=== PATIENT | female | born 1960 | race Caucasian/White ===

== ENCOUNTER → 2017-09-18 | Outpatient (CLI) | payer MEDICAID ==
--- NOTE | 2017-09-18 15:00 | PCVCIMAG ---
EXAM: BILATERAL LOWER EXTREMITY ARTERIAL DUPLEX INDICATION: Peripheral Arterial Disease. Leg pain. Previous right toe amputation. Left toe ulcers. FINDINGS: Right Leg: Satisfactory arterial waveforms in the common femoral and profunda femoral artery. 95% stenosis distal [place] superficial femoral artery. Popliteal artery is patent. The anterior tibial, peroneal, and posterior tibial arteries are patent. Left Leg: Satisfactory arterial waveform in the common femoral and profunda femoral arteries. Segmental occlusion mid/distal [place] superficial femoral artery. Popliteal artery is patent. Occlusion of the mid and distal posterior tibial artery. The anterior tibial and peroneal arteries are patent. IMPRESSION: 95% stenosis distal [place] right superficial femoral artery. Segmental occlusion mid/distal [place] left superficial femoral artery. Occlusion of the mid/distal left posterior tibial artery. LOC:[id number]
== END | disposition home or self-care (01) ==
LOC: PCVCIMAG 13:23
PROVIDERS: ATTEND Nuclear Medicine Nuclear Cardiology
DX: I73.9 Peripheral vascular disease, unspecified (principal); M79.605 Pain in left leg; M79.604 Pain in right leg; L97.529 Non-pressure chronic ulcer of other part of left foot with unspecified severity; I70.8 Atherosclerosis of other arteries
CPT/HCPCS: 36415; 93925

== ENCOUNTER → 2017-09-25 | Outpatient (CLI) | payer MEDICAID ==
[~2017-09-25] MED LIST: DIAZEPAM 10 MG TABLET. ONE; EPTIFIBATIDE BOLUS 2,000 MCG/ML 10ML VIAL. IV ONE; HEPARIN SODIUM 5,000 UNIT/ML VIAL for PCVC. ONE; IODIXANOL 270 MG/ML 100 ML VIAL. ONE; IV NORMAL SALINE 1000ML BAG 1,000 ML ONE; IV NORMAL SALINE 500ML BAG 500 ML ONE; LIDOCAINE 1% Multi-Dose 20 ML VIAL. ONE; LIDOCAINE 1%/EPI 1:100,000 20 ML VIAL. ONE; MIDAZOLAM HCL/PF 2 MG/2 ML VIAL. ONE; fentaNYL PF VIAL 100 MCG/2 ML VIAL ONE; hydrALAZINE 20 MG/ML VIAL. ONE
--- NOTE | 2017-09-25 13:49 | PCVCINTER ---
EXAM: 1. RIGHT SUPERFICIAL FEMORAL ARTERY ATHERECTOMY. 2. SECONDARY THROMBECTOMY RIGHT SUPERFICIAL FEMORAL ARTERY. 3. DRUG COATED BALLOON ANGIOPLASTY RIGHT SUPERFICIAL FEMORAL ARTERY. INDICATION: Peripheral arterial disease. Right leg pain. Hypertension. Renal atherosclerosis. PROCEDURE: Procedure and risks of angiography intervention is appropriate including limb loss stroke and were discussed with the patient's family and consent obtained. The patient's left groin was prepped abnormal sterile fashion. IV conscious sedation was used to procedure with appropriate monitoring from 11:00 AM through 12:00 PM. Ultrasound was used to interrogate the left groin and showed the left common femoral artery to be patent. A permanent spot film was obtained. Under ultrasound guidance access into the left common femoral artery was obtained and a 6 Martiniquais crossover sheath was placed via the left groin to the level of the right common femoral artery. Patient was given 4500 units of heparin IV. Atherectomy of the right superficial femoral artery was performed with 2.0 mm CO3 [employer] laser atherectomy catheter in the standard fashion. Following atherectomy small areas of thrombus were observed and because of this secondary thrombectomy throughout the right superficial femoral artery was carried out with mechanical suction thrombectomy catheter in the standard fashion. Minimal debris was removed. Following this drug coated balloon angioplasty of the right superficial femoral artery was carried out with a 5 x 120 [employer] Frances Ricardo SUPPLY OFFICER catheter. Follow-up angiogram was performed. Catheters and wires removed. Sheath was removed and hemostasis obtained using the FISH device. No immediate complications. FINDINGS: Right superficial femoral artery: Following the procedure as above vessel is widely patent. IMPRESSION: 80% stenosis mid to distal right superficial femoral artery was treated as above with good patency restored. impression follow up LOC:[place] [id number]
== END | disposition home or self-care (01) ==
LOC: PCVCINTER 09:30
PROVIDERS: ATTEND Nuclear Medicine Nuclear Cardiology
DX: I70.211 Atherosclerosis of native arteries of extremities with intermittent claudication, right leg (principal); I10 Essential (primary) hypertension; I70.1 Atherosclerosis of renal artery; E11.51 Type 2 diabetes mellitus with diabetic peripheral angiopathy without gangrene; I25.2 Old myocardial infarction; J45.909 Unspecified asthma, uncomplicated; Z98.890 Other specified postprocedural states
CPT/HCPCS: 37186; 37225; 76937; 99152; 99153; C1725; C1751; C1757; C1760; C1769; C1894; J0690; J1644; J2250; J3010; J3490; J7030; J7040; J0360; J1327

== ENCOUNTER → 2018-03-31 | Outpatient (CLI) | payer MEDICAID | END | disposition home or self-care (01) | LOC: PCVCCLINIC 11:36 | DX: Z51.81 Encounter for therapeutic drug level monitoring (principal); E11.622 Type 2 diabetes mellitus with other skin ulcer; L98.499 Non-pressure chronic ulcer of skin of other sites with unspecified severity; J45.909 Unspecified asthma, uncomplicated; I10 Essential (primary) hypertension; E78.00 Pure hypercholesterolemia, unspecified; Z72.0 Tobacco use; Z79.01 Long term (current) use of anticoagulants | CPT/HCPCS: 85610 ==

== ENCOUNTER → 2018-04-08 | Outpatient (CLI) | payer MEDICAID | END | disposition home or self-care (01) | LOC: PCVCCLINIC 11:00 | DX: Z51.81 Encounter for therapeutic drug level monitoring (principal); J45.909 Unspecified asthma, uncomplicated; E11.9 Type 2 diabetes mellitus without complications; I73.9 Peripheral vascular disease, unspecified; E78.00 Pure hypercholesterolemia, unspecified; Z72.0 Tobacco use; Z88.8 Allergy status to other drugs, medicaments and biological substances; Z79.01 Long term (current) use of anticoagulants | CPT/HCPCS: 85610 ==

== ENCOUNTER → 2018-04-15 | Outpatient (CLI) | payer MEDICAID | END | disposition home or self-care (01) | LOC: PCVCCLINIC 08:40 | DX: Z51.81 Encounter for therapeutic drug level monitoring (principal); J45.909 Unspecified asthma, uncomplicated; E11.9 Type 2 diabetes mellitus without complications; L98.499 Non-pressure chronic ulcer of skin of other sites with unspecified severity; E78.00 Pure hypercholesterolemia, unspecified; I10 Essential (primary) hypertension; Z72.0 Tobacco use; Z79.899 Other long term (current) drug therapy; Z79.01 Long term (current) use of anticoagulants | CPT/HCPCS: 85610 ==

== ENCOUNTER → 2018-04-22 | Outpatient (CLI) | payer MEDICAID | END | disposition home or self-care (01) | LOC: PCVCCLINIC 11:23 | DX: Z51.81 Encounter for therapeutic drug level monitoring (principal); J45.909 Unspecified asthma, uncomplicated; E11.9 Type 2 diabetes mellitus without complications; L98.499 Non-pressure chronic ulcer of skin of other sites with unspecified severity; I73.9 Peripheral vascular disease, unspecified; I10 Essential (primary) hypertension; E78.00 Pure hypercholesterolemia, unspecified; Z72.0 Tobacco use; Z79.01 Long term (current) use of anticoagulants | CPT/HCPCS: 85610 ==

== ENCOUNTER → 2018-05-05 | Outpatient (CLI) | payer MEDICAID | END | disposition home or self-care (01) | LOC: PCVCIMAG 13:53 | DX: I73.9 Peripheral vascular disease, unspecified (principal); J45.909 Unspecified asthma, uncomplicated; E11.9 Type 2 diabetes mellitus without complications; L98.499 Non-pressure chronic ulcer of skin of other sites with unspecified severity; I10 Essential (primary) hypertension; E78.00 Pure hypercholesterolemia, unspecified; Z79.01 Long term (current) use of anticoagulants; Z72.0 Tobacco use | CPT/HCPCS: 85610; 93925; 93926 ==

== ENCOUNTER → 2018-05-30 | Outpatient (CLI) | payer MEDICAID | END | disposition home or self-care (01) | LOC: PCVCCLINIC 11:08 | DX: Z51.81 Encounter for therapeutic drug level monitoring (principal); J45.909 Unspecified asthma, uncomplicated; E11.9 Type 2 diabetes mellitus without complications; I73.9 Peripheral vascular disease, unspecified; Z79.01 Long term (current) use of anticoagulants | CPT/HCPCS: 85610 ==

== ENCOUNTER → 2018-06-09 | Outpatient (CLI) | payer MEDICAID | END | disposition home or self-care (01) | LOC: PCVCIMAG 15:37 | DX: I73.9 Peripheral vascular disease, unspecified (principal); I70.8 Atherosclerosis of other arteries | CPT/HCPCS: 93926 ==

== ENCOUNTER → 2018-07-01 | Outpatient (CLI) | payer MEDICAID | END | disposition home or self-care (01) | LOC: PCVCCLINIC 09:54 | PROVIDERS: ATTEND Nuclear Medicine Nuclear Cardiology | DX: Z51.81 Encounter for therapeutic drug level monitoring (principal); I10 Essential (primary) hypertension; E11.9 Type 2 diabetes mellitus without complications; E78.00 Pure hypercholesterolemia, unspecified; I73.9 Peripheral vascular disease, unspecified; J45.909 Unspecified asthma, uncomplicated; Z72.0 Tobacco use; Z88.8 Allergy status to other drugs, medicaments and biological substances; Z79.01 Long term (current) use of anticoagulants | CPT/HCPCS: 85610 ==

== ENCOUNTER → 2018-07-08 | Outpatient (CLI) | payer MEDICAID | END | disposition home or self-care (01) | LOC: PCVCCLINIC 11:38 | PROVIDERS: ATTEND Nuclear Medicine Nuclear Cardiology | DX: Z51.81 Encounter for therapeutic drug level monitoring (principal); E11.51 Type 2 diabetes mellitus with diabetic peripheral angiopathy without gangrene; J45.909 Unspecified asthma, uncomplicated; I10 Essential (primary) hypertension; Z79.01 Long term (current) use of anticoagulants; Z72.0 Tobacco use; Z88.8 Allergy status to other drugs, medicaments and biological substances | CPT/HCPCS: 85610 ==

== ENCOUNTER → 2018-07-15 | Outpatient (CLI) | payer MEDICAID | END | disposition home or self-care (01) | LOC: PCVCCLINIC 11:53 | PROVIDERS: ATTEND Surgery Vascular Surgery | DX: Z51.81 Encounter for therapeutic drug level monitoring (principal); E11.9 Type 2 diabetes mellitus without complications; J45.909 Unspecified asthma, uncomplicated; Z79.01 Long term (current) use of anticoagulants; Z72.0 Tobacco use | CPT/HCPCS: 85610 ==

== ENCOUNTER → 2018-07-29 | Outpatient (CLI) | payer MEDICAID | END | disposition home or self-care (01) | LOC: PCVCCLINIC 10:44 | PROVIDERS: ATTEND Nuclear Medicine Nuclear Cardiology | DX: Z51.81 Encounter for therapeutic drug level monitoring (principal); E11.9 Type 2 diabetes mellitus without complications; I73.9 Peripheral vascular disease, unspecified; I10 Essential (primary) hypertension; E78.00 Pure hypercholesterolemia, unspecified; Z88.8 Allergy status to other drugs, medicaments and biological substances; Z79.01 Long term (current) use of anticoagulants | CPT/HCPCS: 85610 ==

== ENCOUNTER → 2018-08-13 | Outpatient (CLI) | payer MEDICAID | END | disposition home or self-care (01) | LOC: PCVCCLINIC 10:54 | PROVIDERS: ATTEND Nuclear Medicine Nuclear Cardiology | DX: Z51.81 Encounter for therapeutic drug level monitoring (principal); E11.9 Type 2 diabetes mellitus without complications; J45.909 Unspecified asthma, uncomplicated; I10 Essential (primary) hypertension; Z72.0 Tobacco use; Z79.01 Long term (current) use of anticoagulants | CPT/HCPCS: 85610 ==

== ENCOUNTER → 2018-08-26 | Outpatient (CLI) | payer MEDICAID | END | disposition home or self-care (01) | LOC: PCVCCLINIC 09:37 | PROVIDERS: ATTEND Nuclear Medicine Nuclear Cardiology | DX: Z51.81 Encounter for therapeutic drug level monitoring (principal); E11.9 Type 2 diabetes mellitus without complications; Z72.0 Tobacco use; Z79.01 Long term (current) use of anticoagulants | CPT/HCPCS: 85610 ==

== ENCOUNTER → 2018-09-03 | Outpatient (CLI) | payer MEDICAID | END | disposition home or self-care (01) | LOC: PCVCCLINIC 15:47 | PROVIDERS: ATTEND Nuclear Medicine Nuclear Cardiology | DX: Z51.81 Encounter for therapeutic drug level monitoring (principal); E11.9 Type 2 diabetes mellitus without complications; I10 Essential (primary) hypertension; Z79.01 Long term (current) use of anticoagulants | CPT/HCPCS: 85610 ==

== ENCOUNTER → 2018-09-22 | Outpatient (CLI) | payer MEDICAID | END | disposition home or self-care (01) | LOC: PCVCCLINIC 11:53 | PROVIDERS: ATTEND Nuclear Medicine Nuclear Cardiology | DX: Z51.81 Encounter for therapeutic drug level monitoring (principal); J45.909 Unspecified asthma, uncomplicated; E11.9 Type 2 diabetes mellitus without complications; I10 Essential (primary) hypertension; E78.00 Pure hypercholesterolemia, unspecified; Z79.01 Long term (current) use of anticoagulants | CPT/HCPCS: 85610 ==

== ENCOUNTER → 2018-10-07 | Outpatient (CLI) | payer MEDICAID | END | disposition home or self-care (01) | LOC: PCVCCLINIC 10:15 | PROVIDERS: ATTEND Nuclear Medicine Nuclear Cardiology | DX: Z51.81 Encounter for therapeutic drug level monitoring (principal); E11.9 Type 2 diabetes mellitus without complications; J45.909 Unspecified asthma, uncomplicated; I10 Essential (primary) hypertension; E78.00 Pure hypercholesterolemia, unspecified; Z79.01 Long term (current) use of anticoagulants | CPT/HCPCS: 36415; 85610 ==

== ENCOUNTER → 2018-10-21 | Outpatient (CLI) | payer MEDICAID ==
--- NOTE | 2018-10-21 11:17 | PCVCIMAG ---
EXAM: BILATERAL LOWER EXTREMITY ARTERIAL DUPLEX INDICATION: Peripheral Arterial Disease. Leg pain. FINDINGS: Right Leg: Common femoral and profunda femoral arteries are patent. Increased systolic velocity 442 cm/s mid superficial femoral artery in the midportion of a prior stent consistent with 90% restenosis. Popliteal artery is patent. The anterior tibial and posterior tibial arteries are patent. Distal peroneal artery not well seen. Left Leg: Common femoral and profunda femoral arteries are patent. Complete occlusion of the superficial femoral artery. Postsurgical changes of [id number] popliteal artery bypass graft remain patent. Good flow throughout the bypass graft. Popliteal artery is patent. Mid and distal posterior tibial artery is occluded. Peroneal artery and anterior tibial artery are patent. IMPRESSION: Interval development of 90% restenosis mid right superficial femoral artery within prior stent. Left [id number] popliteal artery bypass graft is patent. Unchanged occlusion mid/distal left posterior tibial artery. LOC:[place] [id number]
== END | disposition home or self-care (01) ==
LOC: PCVCIMAG 09:25
PROVIDERS: ATTEND Nuclear Medicine Nuclear Cardiology
DX: I73.9 Peripheral vascular disease, unspecified (principal); Z72.0 Tobacco use
CPT/HCPCS: 93925

== ENCOUNTER → 2018-10-23 | Outpatient (CLI) | payer MEDICAID ==
[~2018-10-23] MED LIST changes: -HEPARIN SODIUM 5,000 UNIT/ML VIAL for PCVC. ONE; +HEPARIN for SUB-Q USE 5,000 UNIT/ML VIAL. SQ ONE; -IV NORMAL SALINE 500ML BAG 500 ML ONE; -LIDOCAINE 1% Multi-Dose 20 ML VIAL. ONE
--- NOTE | 2018-10-23 16:16 | PCVCINTER ---
EXAM: 1. AORTOGRAM AND BILATERAL LOWER EXTREMITY RUNOFF ANGIOGRAM 2. BILATERAL RENAL ANGIOGRAPHY 3. RIGHT SUPERFICIAL FEMORAL ARTERY ATHERECTOMY AND STENT GRAFT PLACEMENT. 4. SECONDARY THROMBECTOMY RIGHT SUPERFICIAL FEMORAL ARTERY. 5. DRUG COATED BALLOON ANGIOPLASTY RIGHT SUPERFICIAL FEMORAL ARTERY. INDICATION: Peripheral arterial disease. Coronary artery disease. Right leg claudication. In-stent restenosis. Hypertension. Renal atherosclerosis. No prior catheter based angiographic study is available. A full diagnostic angiogram study is performed today and the decision to intervene is based on this diagnostic study. PROCEDURE: Procedure and risks of angiography intervention is appropriate including limb loss stroke and were discussed with the patient's family and consent obtained. The patient's left groin was prepped in the normal sterile fashion. IV conscious sedation was used throughout procedure with appropriate monitoring from 90. Ultrasound was used to interrogate the left groin and showed the left common femoral artery to be patent. A permanent spot film was obtained. Under ultrasound guidance access into the left common femoral artery was obtained and a 5 Jordanian sheath was placed. Through this a 5 Jordanian flush catheter was placed into the abdominal aorta at the level of the renal arteries and AP aortogram was performed. Catheter was positioned at the aortic bifurcation and both oblique views of the pelvis were obtained. Catheter was positioned into the left external iliac artery and left leg runoff angiography was performed. Catheter was exchanged for a visceral catheter was placed into the right renal arteries and right renal angiograms obtained. Catheter was placed into the the left renal arteries and left renal angiograms were obtained. Catheter was advanced to the level of the right external iliac artery and right leg runoff angiography was obtained. Patient was given 4500 units of heparin. A 6 Jordanian crossover sheath was placed via the left groin to the level of the right common femoral artery. Atherectomy of the right superficial femoral artery was performed with 2.0 mm [employer] laser atherectomy catheter in the standard fashion. Following atherectomy small areas of thrombus were observed and because of this secondary thrombectomy throughout the right superficial femoral artery was carried out with mechanical suction thrombectomy catheter in the standard fashion. Minimal debris was removed. Following this drug coated balloon angioplasty of the right superficial femoral artery was carried out with 6 x 120 and 6 x 40 [employer] Frances Ricardo COMMUNITY DEVELOPMENT PLANNER catheters. Stent placement across the areas of high-grade stenosis in the right superficial femoral artery was carried out with a 6 x 150 Viabahn stent graft with subsequent dilatation to 6.0 mm. Follow-up angiogram was performed. Catheters and wires removed. Sheath was removed and hemostasis obtained using the FISH device. No immediate complications. FINDINGS: Aortogram: There is one right and 2 left renal arteries. Moderate plaque in the abdominal aorta without significant stenosis. Pelvis: Moderate plaque right and left common iliac arteries without flow-limiting stenosis. Both internal iliac arteries are patent. Both external iliac arteries are patent. The right and left common femoral and profunda femoral arteries are patent. Right renal artery: Mild plaque proximal vessel does not cause significant stenosis. Left renal artery: There are 2 left renal arteries with the inferior artery being the more dominant artery. Both arteries show adequate patency. Right leg: Areas of high-grade restenosis proximal/mid superficial femoral artery within prior stent. Distal portion of the superficial femoral artery including areas previously stented maintaining adequate patency. The popliteal artery is patent. Three-vessel runoff into the foot. Left leg: Complete occlusion throughout the superficial femoral artery. Postsurgical changes of femoral to above-knee popliteal artery vein bypass graft is widely patent. Popliteal artery shows good patency throughout. The posterior tibial artery is occluded throughout. Peroneal artery is made of an size especially in its distal portion. The anterior tibial artery is the dominant runoff vessel is widely patent to runoff into a moderate-sized dorsalis pedis which refills the metatarsal arch. Right superficial femoral artery: Following procedure as above vessel shows good patency throughout. IMPRESSION: Areas of high-grade in-stent restenosis proximal/mid right superficial femoral artery were treated as above with good patency restored. Previous left femoral-popliteal artery vein bypass graft maintaining good patency. LOC:[id number]
== END | disposition home or self-care (01) ==
LOC: PCVCINTER 09:37
PROVIDERS: ATTEND Nuclear Medicine Nuclear Cardiology
DX: I70.213 Atherosclerosis of native arteries of extremities with intermittent claudication, bilateral legs (principal); I70.1 Atherosclerosis of renal artery; I25.10 Atherosclerotic heart disease of native coronary artery without angina pectoris; I70.0 Atherosclerosis of aorta; I10 Essential (primary) hypertension; E11.9 Type 2 diabetes mellitus without complications; J45.909 Unspecified asthma, uncomplicated; I25.2 Old myocardial infarction; E78.00 Pure hypercholesterolemia, unspecified; Z98.890 Other specified postprocedural states; E89.0 Postprocedural hypothyroidism; Z89.422 Acquired absence of other left toe(s); Z89.421 Acquired absence of other right toe(s); F17.210 Nicotine dependence, cigarettes, uncomplicated; Z72.89 Other problems related to lifestyle; Z88.7 Allergy status to serum and vaccine; Z79.82 Long term (current) use of aspirin; Z79.899 Other long term (current) drug therapy; Z79.84 Long term (current) use of oral hypoglycemic drugs
CPT/HCPCS: 36252; 37186; 37227; 75716; 76937; 99152; 99153; C1725; C1751; C1757; C1760; C1769; C1781; C1876; C1885; C1894; C2623; J0360; J0690; J1327; J1644; J2250; J3010; J3490; J7030; Q9967

== ENCOUNTER → 2018-10-31 | Outpatient (CLI) | payer MEDICAID | END | disposition home or self-care (01) | LOC: PCVCCLINIC 11:30 | PROVIDERS: ATTEND Nuclear Medicine Nuclear Cardiology | DX: Z51.81 Encounter for therapeutic drug level monitoring (principal); E11.9 Type 2 diabetes mellitus without complications; J45.909 Unspecified asthma, uncomplicated; E78.00 Pure hypercholesterolemia, unspecified; I10 Essential (primary) hypertension; I25.10 Atherosclerotic heart disease of native coronary artery without angina pectoris; Z79.01 Long term (current) use of anticoagulants | CPT/HCPCS: 36415; 85610 ==

== ENCOUNTER → 2018-11-21 | Outpatient (CLI) | payer MEDICAID | END | disposition home or self-care (01) | LOC: PCVCCLINIC 11:23 | PROVIDERS: ATTEND Nuclear Medicine Nuclear Cardiology | DX: Z51.81 Encounter for therapeutic drug level monitoring (principal); J45.909 Unspecified asthma, uncomplicated; E11.9 Type 2 diabetes mellitus without complications; I73.9 Peripheral vascular disease, unspecified; I10 Essential (primary) hypertension; E78.00 Pure hypercholesterolemia, unspecified; I25.10 Atherosclerotic heart disease of native coronary artery without angina pectoris; Z72.0 Tobacco use; Z88.8 Allergy status to other drugs, medicaments and biological substances; Z79.01 Long term (current) use of anticoagulants | CPT/HCPCS: 36415; 85610 ==

== ENCOUNTER → 2018-12-19 | Outpatient (CLI) | payer MEDICAID ==
--- NOTE | 2018-12-19 12:04 | PCVCIMAG ---
EXAM: RIGHT LOWER EXTREMITY ARTERIAL DUPLEX INDICATION: Peripheral Arterial Disease. Leg pain. FINDINGS: Right Leg: Satisfactory arterial waveforms throughout the common/profunda/superficial femoral, popliteal, anterior tibial, peroneal, and posterior tibial arteries. No flow limiting stenosis seen. Previous stent superficial femoral artery maintaining good patency. IMPRESSION: No flow limiting stenosis in the right lower extremity. Previous stent throughout the right superficial femoral artery maintaining good patency. LOC:[id number]
== END | disposition home or self-care (01) ==
LOC: PCVCIMAG 09:56
PROVIDERS: ATTEND Internal Medicine Cardiovascular Disease
DX: I73.9 Peripheral vascular disease, unspecified (principal); M79.674 Pain in right toe(s)
CPT/HCPCS: 93926

== ENCOUNTER → 2019-01-01 | Outpatient (CLI) | payer MEDICAID | END | disposition home or self-care (01) | LOC: PCVCCLINIC 14:00 | PROVIDERS: ATTEND Nuclear Medicine Nuclear Cardiology | DX: Z51.81 Encounter for therapeutic drug level monitoring (principal); J45.909 Unspecified asthma, uncomplicated; E11.9 Type 2 diabetes mellitus without complications; I10 Essential (primary) hypertension; E78.00 Pure hypercholesterolemia, unspecified; Z79.01 Long term (current) use of anticoagulants; Z88.7 Allergy status to serum and vaccine | CPT/HCPCS: 36415; 85610 ==

== ENCOUNTER → 2019-01-06 | Outpatient (CLI) | payer MEDICAID | END | disposition home or self-care (01) | LOC: PCVCCLINIC 13:20 | PROVIDERS: ATTEND Nuclear Medicine Nuclear Cardiology | DX: Z51.81 Encounter for therapeutic drug level monitoring (principal); J45.909 Unspecified asthma, uncomplicated; E11.9 Type 2 diabetes mellitus without complications; I10 Essential (primary) hypertension; E78.00 Pure hypercholesterolemia, unspecified; I25.10 Atherosclerotic heart disease of native coronary artery without angina pectoris; Z79.01 Long term (current) use of anticoagulants | CPT/HCPCS: 36415; 85610 ==

== ENCOUNTER → 2019-01-14 | Outpatient (CLI) | payer MEDICAID | END | disposition home or self-care (01) | LOC: PCVCCLINIC 11:46 | PROVIDERS: ATTEND Nuclear Medicine Nuclear Cardiology | DX: Z51.81 Encounter for therapeutic drug level monitoring (principal); I25.10 Atherosclerotic heart disease of native coronary artery without angina pectoris; E78.00 Pure hypercholesterolemia, unspecified; I10 Essential (primary) hypertension; E11.51 Type 2 diabetes mellitus with diabetic peripheral angiopathy without gangrene; J45.909 Unspecified asthma, uncomplicated; Z72.0 Tobacco use; Z88.8 Allergy status to other drugs, medicaments and biological substances; Z79.01 Long term (current) use of anticoagulants | CPT/HCPCS: 36415; 85610 ==

== ENCOUNTER → 2019-01-23 | Outpatient (CLI) | payer MEDICAID | END | disposition home or self-care (01) | LOC: PCVCCLINIC 09:39 | PROVIDERS: ATTEND Nuclear Medicine Nuclear Cardiology | DX: Z51.81 Encounter for therapeutic drug level monitoring (principal); J45.909 Unspecified asthma, uncomplicated; E11.9 Type 2 diabetes mellitus without complications; I10 Essential (primary) hypertension; E78.00 Pure hypercholesterolemia, unspecified; I25.10 Atherosclerotic heart disease of native coronary artery without angina pectoris; Z79.01 Long term (current) use of anticoagulants | CPT/HCPCS: 36415; 85610 ==

== ENCOUNTER → 2019-02-06 | Outpatient (CLI) | payer MEDICAID | END | disposition home or self-care (01) | LOC: PCVCCLINIC 11:26 | PROVIDERS: ATTEND Nuclear Medicine Nuclear Cardiology | DX: Z51.81 Encounter for therapeutic drug level monitoring (principal); I25.10 Atherosclerotic heart disease of native coronary artery without angina pectoris; J45.909 Unspecified asthma, uncomplicated; E11.51 Type 2 diabetes mellitus with diabetic peripheral angiopathy without gangrene; E78.00 Pure hypercholesterolemia, unspecified; I10 Essential (primary) hypertension; Z72.0 Tobacco use; Z79.01 Long term (current) use of anticoagulants; Z88.8 Allergy status to other drugs, medicaments and biological substances | CPT/HCPCS: 36415; 85610 ==

== ENCOUNTER → 2019-02-09 | Outpatient (CLI) | payer MEDICAID | END | disposition home or self-care (01) | LOC: PCVCCLINIC 14:10 | PROVIDERS: ATTEND Nuclear Medicine Nuclear Cardiology | DX: Z51.81 Encounter for therapeutic drug level monitoring (principal); J45.909 Unspecified asthma, uncomplicated; E11.9 Type 2 diabetes mellitus without complications; I10 Essential (primary) hypertension; E78.00 Pure hypercholesterolemia, unspecified; I25.10 Atherosclerotic heart disease of native coronary artery without angina pectoris; Z79.01 Long term (current) use of anticoagulants | CPT/HCPCS: 36415; 85610 ==

== ENCOUNTER → 2019-02-16 | Outpatient (CLI) | payer MEDICAID | END | disposition home or self-care (01) | LOC: PCVCCLINIC 10:12 | PROVIDERS: ATTEND Nuclear Medicine Nuclear Cardiology | DX: Z51.81 Encounter for therapeutic drug level monitoring (principal); J45.909 Unspecified asthma, uncomplicated; E11.9 Type 2 diabetes mellitus without complications; I10 Essential (primary) hypertension; E78.00 Pure hypercholesterolemia, unspecified; Z72.0 Tobacco use; Z88.8 Allergy status to other drugs, medicaments and biological substances; Z79.01 Long term (current) use of anticoagulants | CPT/HCPCS: 36415; 85610 ==

== ENCOUNTER → 2019-02-18 | Outpatient (CLI) | payer MEDICAID | END | disposition home or self-care (01) | LOC: PCVCCLINIC 11:04 | PROVIDERS: ATTEND Nuclear Medicine Nuclear Cardiology | DX: Z51.81 Encounter for therapeutic drug level monitoring (principal); J45.909 Unspecified asthma, uncomplicated; E11.9 Type 2 diabetes mellitus without complications; I10 Essential (primary) hypertension; E78.00 Pure hypercholesterolemia, unspecified; Z88.7 Allergy status to serum and vaccine; Z79.01 Long term (current) use of anticoagulants | CPT/HCPCS: 36415; 85610 ==

== ENCOUNTER → 2019-04-29 | Outpatient (CLI) | payer MEDICAID ==
--- NOTE | 2019-04-29 13:10 | PCVCIMAG ---
APPROVED REPORT Indications Stenosis Doppler Spectral Velocity Analysis PSV / EDVPSV / EDV ECA (R) 90 / 4 cm/sECA (L) 109 / 16 cm/s dICA (R) 37 / 14 cm/sdICA (L) 52 / 22 cm/s Myron (R) 194 / 81 cm/smICA (L) 102 / 40 cm/s pICA (R) 236 / 97 cm/spICA (L) 249 / 86 cm/s Bulb (R) 100 / 32 cm/sBulb (L) 106 / 28 cm/s dCCA (R) 72 / 23 cm/sdCCA (L) 62 / 17 cm/s mCCA (R) 53 / 17 cm/smCCA (L) 75 / 18 cm/s Vert (R) 67 / 15 cm/sVert (L) 48 / 19 cm/s ICA/CCA 3.28ICA/CCA 4.02 Findings The right carotid bulb has moderately severe plaque. The right proximal internal carotid artery shows 70-80% stenosis. The right common carotid artery shows no significant stenosis. The right external carotid artery shows no significant stenosis. The left carotid bulb has moderately severe plaque. The left proximal internal carotid artery shows 70-80% stenosis. The left common carotid artery shows no significant stenosis. The left external carotid artery shows no significant stenosis. Conclusion 1. Right internal carotid artery stenosis (70-80%). 2. Left internal carotid artery stenosis (70-80%). 3. Antegrade vertebral flow.
--- NOTE | 2019-04-30 17:54 | PCVCIMAG ---
EXAM: BILATERAL LOWER EXTREMITY ARTERIAL DUPLEX INDICATION: Peripheral Arterial Disease. Leg pain. FINDINGS: Right Leg: Common femoral and profunda femoral arteries are patent. Superficial femoral and popliteal arteries are patent. Prior superficial femoral artery stent is patent. Anterior tibial, peroneal, and posterior tibial arteries are patent. Left Leg: Common femoral and profunda femoral arteries are patent. Occlusion [place] superficial femoral artery. Prior femoral-popliteal artery bypass graft is patent. Popliteal artery is patent. Anterior tibial and peroneal arteries are patent. Posterior tibial artery is occluded. IMPRESSION: Previous right superficial femoral artery stent is patent. Left femoral-popliteal artery bypass graft is patent. Unchanged occlusion left posterior tibial artery. LOC:[place] [id number]
== END | disposition home or self-care (01) ==
LOC: PCVCIMAG 08:09
PROVIDERS: ATTEND Nuclear Medicine Nuclear Cardiology
DX: I65.23 Occlusion and stenosis of bilateral carotid arteries (principal); R09.89 Other specified symptoms and signs involving the circulatory and respiratory systems; E11.00 Type 2 diabetes mellitus with hyperosmolarity without nonketotic hyperglycemic-hyperosmolar coma (NKHHC); I73.9 Peripheral vascular disease, unspecified; Z72.0 Tobacco use
CPT/HCPCS: 93880; 93925

== ENCOUNTER → 2019-04-30 | Outpatient (CLI) | payer MEDICAID | END | disposition home or self-care (01) | LOC: PCVCCLINIC 10:00 | PROVIDERS: ATTEND Nuclear Medicine Nuclear Cardiology | DX: I73.9 Peripheral vascular disease, unspecified (principal); I77.9 Disorder of arteries and arterioles, unspecified; I25.10 Atherosclerotic heart disease of native coronary artery without angina pectoris; I10 Essential (primary) hypertension; E78.00 Pure hypercholesterolemia, unspecified; E11.00 Type 2 diabetes mellitus with hyperosmolarity without nonketotic hyperglycemic-hyperosmolar coma (NKHHC); J45.909 Unspecified asthma, uncomplicated; F17.210 Nicotine dependence, cigarettes, uncomplicated; Z88.8 Allergy status to other drugs, medicaments and biological substances; Z79.82 Long term (current) use of aspirin | CPT/HCPCS: G0463 ==

== ENCOUNTER → 2019-08-14 | Outpatient (CLI) | payer MEDICAID | END | disposition home or self-care (01) | LOC: PCVCCLINIC 11:00 | PROVIDERS: ATTEND Internal Medicine Cardiovascular Disease | DX: Z51.81 Encounter for therapeutic drug level monitoring (principal); J45.909 Unspecified asthma, uncomplicated; E11.9 Type 2 diabetes mellitus without complications; I10 Essential (primary) hypertension; E78.00 Pure hypercholesterolemia, unspecified; Z79.01 Long term (current) use of anticoagulants; Z88.7 Allergy status to serum and vaccine | CPT/HCPCS: 36415; 85610 ==

== ENCOUNTER → 2019-08-17 | Outpatient (CLI) | payer MEDICAID | LOC: PCVCCLINIC 09:30 | PROVIDERS: ATTEND Internal Medicine Cardiovascular Disease | DX: E11.00 Type 2 diabetes mellitus with hyperosmolarity without nonketotic hyperglycemic-hyperosmolar coma (NKHHC) (principal); I10 Essential (primary) hypertension; E78.2 Mixed hyperlipidemia; Z86.39 Personal history of other endocrine, nutritional and metabolic disease; Z79.4 Long term (current) use of insulin | CPT/HCPCS: 36415; 85610; G0463 ==

== ENCOUNTER → 2019-08-24 | Outpatient (CLI) | payer MEDICAID | END | disposition home or self-care (01) | LOC: PCVCCLINIC 11:00 | PROVIDERS: ATTEND Nuclear Medicine Nuclear Cardiology | DX: Z51.81 Encounter for therapeutic drug level monitoring (principal); I25.10 Atherosclerotic heart disease of native coronary artery without angina pectoris; I73.9 Peripheral vascular disease, unspecified; E11.9 Type 2 diabetes mellitus without complications; I10 Essential (primary) hypertension; E78.00 Pure hypercholesterolemia, unspecified; Z79.01 Long term (current) use of anticoagulants; Z72.0 Tobacco use; Z88.7 Allergy status to serum and vaccine | CPT/HCPCS: 36415; 85610 ==

== ENCOUNTER → 2019-09-02 | Outpatient (CLI) | payer MEDICAID | END | disposition home or self-care (01) | LOC: PCVCCLINIC 15:20 | PROVIDERS: ATTEND Nuclear Medicine Nuclear Cardiology | DX: Z51.81 Encounter for therapeutic drug level monitoring (principal); I21.9 Acute myocardial infarction, unspecified; E11.9 Type 2 diabetes mellitus without complications; I10 Essential (primary) hypertension; I25.10 Atherosclerotic heart disease of native coronary artery without angina pectoris; E78.00 Pure hypercholesterolemia, unspecified; F17.210 Nicotine dependence, cigarettes, uncomplicated; Z79.01 Long term (current) use of anticoagulants; Z90.09 Acquired absence of other part of head and neck; Z82.3 Family history of stroke; Z83.3 Family history of diabetes mellitus; Z88.7 Allergy status to serum and vaccine | CPT/HCPCS: 36415; 85610 ==

== ENCOUNTER → 2019-09-04 | Outpatient (CLI) | payer MEDICAID | END | disposition home or self-care (01) | LOC: PCVCCLINIC 15:00 | PROVIDERS: ATTEND Nuclear Medicine Nuclear Cardiology | DX: Z51.81 Encounter for therapeutic drug level monitoring (principal); I73.9 Peripheral vascular disease, unspecified; J45.909 Unspecified asthma, uncomplicated; I21.9 Acute myocardial infarction, unspecified; I10 Essential (primary) hypertension; E11.9 Type 2 diabetes mellitus without complications; F17.210 Nicotine dependence, cigarettes, uncomplicated; Z90.09 Acquired absence of other part of head and neck; Z82.3 Family history of stroke; Z83.3 Family history of diabetes mellitus; Z88.7 Allergy status to serum and vaccine; Z79.01 Long term (current) use of anticoagulants | CPT/HCPCS: 36415; 85610 ==

== ENCOUNTER → 2019-11-05 | Outpatient (CLI) | payer MEDICAID ==
--- NOTE | 2019-11-05 11:25 | PCVCIMAG ---
EXAM: BILATERAL CAROTID DUPLEX INDICATION: Carotid Occlusive Disease. FINDINGS: Doppler Measurements (centimeters per second): RIGHT: Peak CCA-63, Peak ECA-142, Diastolic ICA-70, Peak ICA-219, ICA/CCA Ratio-3.5. LEFT: Peak CCA-76, Peak ECA-155, Diastolic ICA-67, Peak ICA-272, ICA/CCA Ratio-3.6. RIGHT CAROTID: The carotid bulb has moderate plaque. The proximal internal carotid artery shows 70% stenosis. The common carotid artery shows no significant stenosis. The external carotid artery shows 40% stenosis. LEFT CAROTID: The carotid bulb has moderate plaque. The proximal internal carotid artery shows 70% stenosis. The common carotid artery shows no significant stenosis. The external carotid artery shows 50% stenosis. Antegrade flow in both vertebral arteries. IMPRESSION: 70% stenosis of the right internal carotid artery with moderate plaque. 70% stenosis of the left internal carotid artery with moderate plaque. Findings similar to or slightly less severe than duplex study from April 2016. Carotid angiogram in April showed right and left internal carotid artery stenoses of 60%. LOC:[id number]
--- NOTE | 2019-11-05 12:17 | PCVCIMAG ---
EXAM: BILATERAL LOWER EXTREMITY ARTERIAL DUPLEX INDICATION: Peripheral Arterial Disease. Leg pain. FINDINGS: Right Leg: Common femoral and profunda femoral arteries are patent. Since April study occlusion throughout the right superficial femoral artery within prior stent has developed. Refilling of the upper popliteal artery. Popliteal artery is patent. The anterior tibial, peroneal, and posterior tibial arteries are patent. Left Leg: Common femoral and profunda femoral arteries are patent. Occlusion of the [place] superficial femoral artery within prior stent. Postsurgical changes of [id number] popliteal artery bypass graft is noted with satisfactory arterial flow throughout the graft. Increased systolic velocity 390 cm/s from 206 m/s in the proximal portion of the graft has developed since prior study concerning for 70% restenosis within the graft. Mid and lower popliteal artery is patent. Mid/distal posterior tibial arteries occluded. The anterior tibial and peroneal arteries are patent. IMPRESSION: Interval development of occlusion throughout the right superficial femoral artery within prior stent since April 2019. Interval development of 70% restenosis in the proximal anastomosis of the previous left femoral-popliteal artery bypass graft. Unchanged occlusion mid/distal left posterior tibial artery. LOC:[id number]
== END | disposition home or self-care (01) ==
LOC: PCVCIMAG 09:34
PROVIDERS: ATTEND Nuclear Medicine Nuclear Cardiology
DX: I65.23 Occlusion and stenosis of bilateral carotid arteries (principal); I73.9 Peripheral vascular disease, unspecified; I25.10 Atherosclerotic heart disease of native coronary artery without angina pectoris; I10 Essential (primary) hypertension; E78.00 Pure hypercholesterolemia, unspecified; E11.00 Type 2 diabetes mellitus with hyperosmolarity without nonketotic hyperglycemic-hyperosmolar coma (NKHHC); J45.909 Unspecified asthma, uncomplicated; I25.2 Old myocardial infarction; Z90.49 Acquired absence of other specified parts of digestive tract; Z79.82 Long term (current) use of aspirin; Z79.84 Long term (current) use of oral hypoglycemic drugs; Z79.899 Other long term (current) drug therapy; Z88.8 Allergy status to other drugs, medicaments and biological substances; Z72.0 Tobacco use
CPT/HCPCS: 93880; 93925; G0463